=== PATIENT | female | born 2005 | race Two or more races ===

== ENCOUNTER → 2023-11-03 | Outpatient (CLI) | payer BC, OTHER ==
[2023-11-04 16:03] LABS: HIV 1,2 COMBO ANTIGEN/ANTIBODY Negative (Negative)
== END | disposition home or self-care (01) ==
LOC: LAB SHORT 15:21 → LAB 15:21
PROVIDERS: Family Medicine
DX: Z11.59 Encounter for screening for other viral diseases (principal)
CPT/HCPCS: 87389